=== PATIENT | male | born 1985 ===

== ENCOUNTER 2017-07-14 01:56 | Emergency (ER) | payer MEDICAID ==
--- NOTE | 2017-07-14 02:18 | ED PDOC ---
Arrival/HPI - General Chief Complaint: Substance Abuse Time Seen by Provider: 07/14/17 02:14 Historian: Patient - History of Present Illness Narrative History of Present Illness (Text): 07/14/17 02:17 Neri Dotson is a 31 year old male, whose past medical history includes substance abuse, who presents to the emergency department for substance abuse. Patient states he took "too much Sandra" and smoked marijuana yesterday. Patient denies any suicidal ideation, homicidal ideation, fever, chills, chest pain, shortness of breath, nausea, vomiting, diarrhea, urinary symptoms, back pain, neck pain, or any other complaints. Time/Duration: Prior to Arrival Symptom Onset: Gradual Symptom Course: Unchanged Context: Home Past Medical History - Provider Review Nursing Documentation Reviewed: Yes - Psychiatric Hx Substance Use: Yes (mollie, marijuana) Family/Social History - Physician Review Nursing Documentation Reviewed: Yes Family/Social History: Unknown Family HX Smoking Status: Heavy Smoker > 10 Cigarettes Daily Hx Alcohol Use: Yes Frequency of alcohol use: Socially Hx Substance Use: Yes (mollie, marijuana) Allergies/Home Meds Allergies/Adverse Reactions: Allergies No Known Allergies Allergy (Verified 02/23/17 11:50) Home Medications: Home Meds Medication Instructions Recorded Confirmed No Known Home Med 07/14/17 07/14/17 Review of Systems - Physician Review All systems were reviewed & negative as marked: Yes - Review of Systems Constitutional: Normal. absent: Fevers Eyes: Normal ENT: Normal Respiratory: Normal. absent: SOB, Cough Cardiovascular: Normal. absent: Chest Pain Gastrointestinal: Normal. absent: Abdominal Pain, Diarrhea, Nausea, Vomiting Genitourinary Male: Normal. absent: Dysuria, Frequency, Hematuria, Urinary Output Changes Musculoskeletal: Normal. absent: Back Pain, Neck Pain Skin: Normal. absent: Rash Neurological: Normal. absent: Headache, Dizziness Endocrine: Normal Hemo/Lymphatic: Normal Psychiatric: Other (substance abuse). absent: Suicidal Ideation Physical Exam Vital Signs Reviewed: Yes Vital Signs Temp Pulse Resp BP Pulse Ox 07/14/17 09:22 97.6 F 86 18 105/55 L 96 07/14/17 07:31 97.5 F L 71 18 113/58 L 96 07/14/17 04:06 87 20 122/60 95 07/14/17 02:02 99.2 F 109 H 24 124/46 L 97 Temperature: Afebrile Blood Pressure: Normal Pulse: Tachycardic Respiratory Rate: Normal Appearance: Positive for: Well-Appearing, Non-Toxic, Comfortable Pain Distress: None Mental Status: Positive for: Alert and Oriented X 3, other (Anxious) - Systems Exam Head: Present: Atraumatic, Normocephalic Pupils: Present: PERRL Extroacular Muscles: Present: EOMI Conjunctiva: Present: Normal Mouth: Present: Moist Mucous Membranes Neck: Present: Normal Range of Motion Respiratory/Chest: Present: Clear to Auscultation, Good Air Exchange. No: Respiratory Distress, Accessory Muscle Use Cardiovascular: Present: Regular Rate and Rhythm, Normal S1, S2. No: Murmurs Abdomen: Present: Normal Bowel Sounds. No: Tenderness, Distention, Peritoneal Signs Back: Present: Normal Inspection Upper Extremity: Present: Normal Inspection. No: Cyanosis, Edema Lower Extremity: Present: Normal Inspection. No: Edema Neurological: Present: GCS=15, CN II-XII Intact, Speech Normal Skin: Present: Warm, Dry, Normal Color. No: Rashes Psychiatric: Present: Alert, Oriented x 3, Anxious, Other (Bizarre behavior) Medical Decision Making ED Course and Treatment: 07/14/17 02:17 Impression: 31 year old male presents the Emergency department status post substance abuse. Plan: -- EKG -- Labs, alcohol level -- Urinalysis, urine drug screen -- Reassess and disposition Progress Notes: Reviewed EKG, NSR at [address]-segment elevations or depressions, no T-wave inversions, normal intervals. 07/14/17 06:27 pt reassesed now oriented x 3, mildly somulent, pending clincal sobriety. endorses he took sandra and smoke marijuana yesterday.' 07/15/17 07:50 endorsed to day shift, pending clinical sobriety reassessment final dispo - Lab Interpretations Lab Results: 07/14/17 04:00 07/14/17 04:00 Lab Results 07/14/17 07:25: Urine Opiates Screen Negative, Urine Methadone Screen Negative, Ur Barbiturates Screen Negative, Ur Phencyclidine Scrn Negative, Ur Amphetamines Screen Negative, U Benzodiazepines Scrn Negative, U Oth Cocaine Metabols Negative, U Cannabinoids Screen Positive H 07/14/17 07:25: Urine Color Yellow, Urine Appearance Clear, Urine pH 6.0, Ur Specific [place] >= 1.030, Urine Protein Negative, Urine Glucose (UA) Negative, Urine Ketones 15 H, Urine Blood Negative, Urine Nitrate Negative, Urine Bilirubin Negative, Urine Urobilinogen 0.2, Ur Leukocyte Esterase Negative 07/14/17 04:00: Alcohol, Quantitative < 10 07/14/17 04:00: Salicylates < 1 L, Acetaminophen < 10.0 L 07/14/17 04:00: Sodium 137, Potassium 3.1 L, Chloride 97 L, Carbon Dioxide 29, Anion Gap 14, BUN 27 H, Creatinine 1.2, Est GFR ( Amer) > 60, Est GFR ( Non-Af Amer) > 60, Random Glucose 90, Calcium 9.3, Total Bilirubin 2.9 H, AST 140 H, ALT 60 H, Alkaline Phosphatase 77, Total Protein 6.8, Albumin 4.0, Globulin 2.7, Albumin/Globulin Ratio 1.5 07/14/17 04:00: WBC 10.6, RBC 4.10, Hgb 13.4 L, Hct 36.6 L, MCV 89.3, MCH 32.7, MCHC 36.6, RDW 12.2, Plt Count 181, MPV 9.7, Gran % 76.4 H, Lymph % (Auto) 15.3 L, [place] % (Auto) 6.8 H, Eos % (Auto) 1.3 L, Baso % (Auto) 0.2, Gran # 8.13 H, Lymph # (Auto) 1.6, [place] # (Auto) 0.7 H, Eos # (Auto) 0.1, Baso # (Auto) 0.02 - EKG Interpretation Interpreted by ED Physician: Yes Type: 12 lead EKG - Medication Orders Current Medication Orders: Discontinued Medications Potassium Chloride (K-Dur 20 Meq Er Tab) 40 meq PO STAT STA Stop: 07/14/17 04:25 - Scribe Statement The provider has reviewed the documentation as recorded by the Eileen Lugo training under Heidi Madrigla All medical record entries made by the Girishibmelania were at my direction and personally dictated by me. I have reviewed the chart and agree that the record accurately reflects my personal performance of the history, physical exam, medical decision making, and the department course for this patient. I have also personally directed, reviewed, and agree with the discharge instructions and disposition. Disposition/Present on Arrival - Present on Arrival Any Indicators Present on Arrival: No History of DVT/PE: No History of Uncontrolled Diabetes: No Urinary Catheter: No History of Decub. Ulcer: No History Surgical Site Infection Following: None - Disposition Have Diagnosis and Disposition been Completed?: Yes Diagnosis: Drug abuse Disposition: HOME/ ROUTINE Disposition Time: 07:00 Condition: IMPROVED Discharge Instructions (ExitCare): Polysubstance Abuse (ED) Additional Instructions: Mr Dotson, thank you for letting us take care of you today. Your provider was Dr. Gustafson. You were treated for Drug use. The emergency medical care you received today was directed at your acute symptoms. If you were prescribed any medication, please fill it and take as directed. It may take several days for your symptoms to resolve. Return to the Emergency Department if your symptoms worsen, do not improve, or if you have any other problems. Please contact your doctor or call one of the physicians/clinics you have been referred to that are listed on the Patient Visit Information form that is included in your discharge packet. Bring any paperwork you were given at discharge with you along with any medications you are taking to your follow up visit. Our treatment cannot replace ongoing medical care by a primary care provider (PCP) outside of the emergency department. Thank you for allowing the [facility] team to be part of your care today. If you had an X-Ray or CT scan: A Radiologist will review the ED reading if any change in treatment is needed we will contact you. If you had a blood, urine, or wound culture: It will take several days for the results, if any change in treatment is needed we will contact you. If you had an STI test: It will take 48 hours for the results. Please call after 1 week if you have not heard back. Referrals: [facility] at [facility] [Outside] - Follow up with primary Forms: [employer] (Welsh), WORK NOTE
[2017-07-14 04:22] LABS: BASO # 0.02 K/mm3 (0.0-2.0); BASO % 0.2 % (0.0-3.0); EOS # 0.1 (0.0-0.7); EOS % 1.3 % (1.5-5.0); GRAN # 8.13 (1.4-6.5); GRAN % 76.4 % (50.0-68.0); HEMOGLOBIN 13.4 g/dL (14.0-18.0); LYMPH # 1.6 (1.2-3.4); LYMPH % 15.3 % (22.0-35.0); MEAN CELL VOLUME 89.3 fl (80.0-105.0); MEAN CORPUSCULAR HEMOGLOBIN 32.7 pg (25.0-35.0); MEAN CORPUSCULAR HGB CONC 36.6 g/dl (31.0-37.0); MEAN PLATELET VOLUME 9.7 fl (7.0-11.0); MONO # 0.7 (0.1-0.6); MONO % 6.8 % (1.0-6.0); RBC 4.1 10^6/uL (3.5-6.1); RED CELL DISTRIBUTION WIDTH 12.2 % (11.5-14.5); WHITE BLOOD COUNT 10.6 10^3/ul (4.5-11.0)
[2017-07-14 04:23] LABS: ACETAMINOPHEN < 10.0 ug/ml (10.0-20.0); SALICYLATE < 1 mg/dL (2.0-20.0)
[2017-07-14 04:24] LABS: ALB/GLOB RATIO 1.5 (1.1-1.8); ALT/SGPT 60 U/L (7-56); AST/SGOT 140 U/L (17-59); BLOOD UREA NITROGEN 27 mg/dL (7-21); CALCIUM 9.3 mg/dL (8.4-10.5); GFR AFRICAN-AMERICAN > 60; GFR NON-AFRICAN AMERICAN > 60
[2017-07-14] MEDS ORDERED: Potassium Chloride 20 mEq ER Tab PO STA (04:24)
[2017-07-14 07:31] VITALS: RESP 18; O2SAT 96
[2017-07-14 07:46] LABS: URINE BILIRUBIN NEGATIVE (NEGATIVE); URINE BLOOD NEGATIVE (NEGATIVE); URINE GLUCOSE (UA) NEGATIVE (NEGATIVE); URINE LEUKOCYTE ESTERASE NEGATIVE Leu/uL (NEGATIVE); URINE NITRATE NEGATIVE (NEGATIVE); URINE PROTEIN NEGATIVE mg/dL (<30 mg/dL); URINE UROBILINOGEN 0.2 E.U./dL (<1 E.U./dL)
[2017-07-14 07:49] LABS: URINE APPEARANCE CLEAR (CLEAR); URINE COLOR YELLOW (YELLOW)
[2017-07-14 08:00] LABS: BARBITURATES, UR NEGATIVE (NEGATIVE); BENZODIAZEPINES, UR NEGATIVE (NEGATIVE); OPIATES, UR NEGATIVE (NEGATIVE); PHENCYCLIDINE, UR NEGATIVE (NEGATIVE)
--- NOTE | 2017-07-14 09:00 | ED PDOC ---
Physical Exam Vital Signs Temp Pulse Resp BP Pulse Ox 07/14/17 07:31 97.5 F L 71 18 113/58 L 96 07/14/17 04:06 87 20 122/60 95 07/14/17 02:02 99.2 F 109 H 24 124/46 L 97 Finger Stick Blood Glucose: 106 Medical Decision Making ED Course and Treatment: 07/14/17 07:18 Patient signed out to me by Dr. Estrada. 07/14/2017 08:56 Patient currently stable, awake and alert oriented x 3 at this time. Patient admits to having used moly last night and is now requesting food. Patient has no slurred speech, no ataxia. Has been advise to go to drug rehab center and to follow up at clinic. - Critical Care Critical Care Minutes: 30 minutes - Lab Interpretations Lab Results: 07/14/17 04:00 07/14/17 04:00 Lab Results 07/14/17 07:25: Urine Opiates Screen Negative, Urine Methadone Screen Negative, Ur Barbiturates Screen Negative, Ur Phencyclidine Scrn Negative, Ur Amphetamines Screen Negative, U Benzodiazepines Scrn Negative, U Oth Cocaine Metabols Negative, U Cannabinoids Screen Positive H 07/14/17 07:25: Urine Color Yellow, Urine Appearance Clear, Urine pH 6.0, Ur Specific [place] >= 1.030, Urine Protein Negative, Urine Glucose (UA) Negative, Urine Ketones 15 H, Urine Blood Negative, Urine Nitrate Negative, Urine Bilirubin Negative, Urine Urobilinogen 0.2, Ur Leukocyte Esterase Negative 07/14/17 04:00: Alcohol, Quantitative < 10 07/14/17 04:00: Salicylates < 1 L, Acetaminophen < 10.0 L 07/14/17 04:00: Sodium 137, Potassium 3.1 L, Chloride 97 L, Carbon Dioxide 29, Anion Gap 14, BUN 27 H, Creatinine 1.2, Est GFR ( Amer) > 60, Est GFR ( Non-Af Amer) > 60, Random Glucose 90, Calcium 9.3, Total Bilirubin 2.9 H, AST 140 H, ALT 60 H, Alkaline Phosphatase 77, Total Protein 6.8, Albumin 4.0, Globulin 2.7, Albumin/Globulin Ratio 1.5 07/14/17 04:00: WBC 10.6, RBC 4.10, Hgb 13.4 L, Hct 36.6 L, MCV 89.3, MCH 32.7, MCHC 36.6, RDW 12.2, Plt Count 181, MPV 9.7, Gran % 76.4 H, Lymph % (Auto) 15.3 L, [place] % (Auto) 6.8 H, Eos % (Auto) 1.3 L, Baso % (Auto) 0.2, Gran # 8.13 H, Lymph # (Auto) 1.6, [place] # (Auto) 0.7 H, Eos # (Auto) 0.1, Baso # (Auto) 0.02 - Medication Orders Current Medication Orders: Discontinued Medications Potassium Chloride (K-Dur 20 Meq Er Tab) 40 meq PO STAT STA Stop: 07/14/17 04:25 - Scribe Statement The provider has reviewed the documentation as recorded by the Eileen Thayer Provider Scribe Attestation: All medical record entries made by the Scribe were at my direction and personally dictated by me. I have reviewed the chart and agree that the record accurately reflects my personal performance of the history, physical exam, medical decision making, and the department course for this patient. I have also personally directed, reviewed, and agree with the discharge instructions and disposition. Disposition/Present on Arrival - Present on Arrival Any Indicators Present on Arrival: No History of DVT/PE: No History of Uncontrolled Diabetes: No Urinary Catheter: No History of Decub. Ulcer: No History Surgical Site Infection Following: None - Disposition Have Diagnosis and Disposition been Completed?: Yes Diagnosis: Drug abuse Disposition: HOME/ ROUTINE Disposition Time: 09:06 Patient Plan: Discharge Patient Problems: Current Active Problems Problem Status Onset Drug abuse Acute Condition: IMPROVED Discharge Instructions (ExitCare): Polysubstance Abuse (ED) Additional Instructions: Mr Dotson, thank you for letting us take care of you today. Your provider was Dr. Gustafson. You were treated for Drug use. The emergency medical care you received today was directed at your acute symptoms. If you were prescribed any medication, please fill it and take as directed. It may take several days for your symptoms to resolve. Return to the Emergency Department if your symptoms worsen, do not improve, or if you have any other problems. Please contact your doctor or call one of the physicians/clinics you have been referred to that are listed on the Patient Visit Information form that is included in your discharge packet. Bring any paperwork you were given at discharge with you along with any medications you are taking to your follow up visit. Our treatment cannot replace ongoing medical care by a primary care provider (PCP) outside of the emergency department. Thank you for allowing the [email or web address] team to be part of your care today. If you had an X-Ray or CT scan: A Radiologist will review the ED reading if any change in treatment is needed we will contact you. If you had a blood, urine, or wound culture: It will take several days for the results, if any change in treatment is needed we will contact you. If you had an STI test: It will take 48 hours for the results. Please call after 1 week if you have not heard back. Referrals: [facility] at [facility] [Outside] - Follow up with primary Forms: [facility] (Vincentian), WORK NOTE
[2017-07-14 09:25] VITALS: BP 105/55; PULSE 86; TEMP 97.6
--- NOTE | 2017-07-14 16:07 | CARD ---
APPROVED REPORT EKG Measurement Heart [id number] <Conclusion> Normal sinus rhythm with sinus arrhythmia Normal ECG
== END 2017-07-14 10:04 | disposition home or self-care (01) ==
LOC: ED 01:56 → MERGE 01:56 → ED 10:04
DX: F19.10 Other psychoactive substance abuse, uncomplicated (principal); F17.210 Nicotine dependence, cigarettes, uncomplicated

== ENCOUNTER 2017-09-26 19:39 | Emergency (ER) | payer MEDICAID ==
[2017-09-26 19:40] VITALS: BMI 23.1
[2017-09-26 19:50] VITALS: RESP 18; TEMP 97.9; O2SAT 99
[2017-09-26] MEDS ORDERED: Oxycodone/Acetaminophen 5/325 mg Tab PO STA (19:50)
--- NOTE | 2017-09-26 19:56 | ED PDOC ---
Arrival/HPI - General Chief Complaint: Dental Pain Time Seen by Provider: 09/26/17 19:44 Historian: Patient - History of Present Illness Narrative History of Present Illness (Text): 09/26/17 20:00 32 year old male presents to the Emergency department via ambulance complaining of right upper molar dental pain for 1 week. Patient has not seen a dentist and has been taking Motrin with minor to no relief. Today, patient decided to call emergency services because he felt that the pain was "too much." Patient denies any fever, chills, chest pain, shortness of breath, nausea, vomiting, diarrhea, urinary symptoms, back pain, neck pain, headache, dizziness, trauma/injury, or any other complaints. Time/Duration: 1 week Symptom Onset: Gradual Symptom Course: Worsening Context: Home Past Medical History - Provider Review Nursing Documentation Reviewed: Yes - Infectious Disease Hx of Infectious Diseases: None - Cardiac Hx Cardiac Disorders: No - Psychiatric Hx Substance Use: Yes - Surgical History Hx Orthopedic Surgery: Yes Other/Comment: L hip surgery secondary to dislocation - Anesthesia Hx Anesthesia: Yes Hx Anesthesia Reactions: No Hx Malignant Hyperthermia: No Family/Social History - Physician Review Nursing Documentation Reviewed: Yes Family/Social History: Unknown Family HX Smoking Status: Heavy Smoker > 10 Cigarettes Daily Hx Alcohol Use: Yes Hx Substance Use: Yes Substance used: MARIJUANNA Allergies/Home Meds Allergies/Adverse Reactions: Allergies No Known Allergies Allergy (Verified 02/23/17 11:50) Review of Systems - Physician Review All systems were reviewed & negative as marked: Yes - Review of Systems Constitutional: absent: Fevers, Night Sweats ENT: Other (dental pain) Respiratory: absent: SOB Cardiovascular: absent: Chest Pain Gastrointestinal: absent: Diarrhea, Nausea, Vomiting Genitourinary Male: absent: Dysuria Musculoskeletal: absent: Back Pain, Neck Pain Neurological: absent: Headache, Dizziness Physical Exam Vital Signs Reviewed: Yes Vital Signs Temp Pulse Resp BP Pulse Ox 09/26/17 20:13 70 18 140/82 99 09/26/17 19:40 97.9 F 68 18 142/90 99 Temperature: Afebrile Blood Pressure: Normal Pulse: Regular Respiratory Rate: Normal Appearance: Positive for: Well-Appearing, Non-Toxic, Comfortable Pain Distress: None Mental Status: Positive for: Alert and Oriented X 3 - Systems Exam Head: Present: Atraumatic, Normocephalic Pupils: Present: PERRL Extroacular Muscles: Present: EOMI Conjunctiva: Present: Normal Mouth: Present: Moist Mucous Membranes, Other (No abscess, no swollen glands). No: Normal Teeth (Dental decay and dental caries) Neck: Present: Normal Range of Motion Respiratory/Chest: Present: Clear to Auscultation, Good Air Exchange. No: Respiratory Distress, Accessory Muscle Use Cardiovascular: Present: Regular Rate and Rhythm, Normal S1, S2. No: Murmurs Abdomen: No: Tenderness, Distention, Peritoneal Signs Back: Present: Normal Inspection Upper Extremity: Present: Normal Inspection. No: Cyanosis, Edema Lower Extremity: Present: Normal Inspection. No: Edema Neurological: Present: GCS=15, CN II-XII Intact, Speech Normal Skin: Present: Warm, Dry, Normal Color. No: Rashes Psychiatric: Present: Alert, Oriented x 3, Normal Insight, Normal Concentration Medical Decision Making ED Course and Treatment: 09/26/17 20:14 Impression: 32 year old male presents to the Emergency department complaining of right upper molar dental pain. Plan: -- Amoxicillin, Zofran, Percocet -- Disposition Prior Visits: Notes and results from previous visits were reviewed. Patient was last seen in the emergency department on on 07/14/17 for drug abuse. Patient was discharged home. Progress Notes: Will provide the patient with amoxicillin and discharge. Will instruct the patient to follow up with dentist. - Medication Orders Current Medication Orders: Discontinued Medications Amoxicillin (Amoxil 500 Mg Cap) 500 mg PO STAT STA PRN Reason: Protocol Stop: 09/26/17 19:51 Last Admin: 09/26/17 19:58 Dose: 500 mg Ondansetron HCl (Zofran Odt) 8 mg PO STAT STA Stop: 09/26/17 19:52 Last Admin: 09/26/17 19:58 Dose: 8 mg Oxycodone/Acetaminophen (Percocet 5/325 Mg Tab) 2 tab PO STAT STA Stop: 09/26/17 19:51 Last Admin: 09/26/17 19:58 Dose: 2 tab MAR Pain Assessment Document 09/26/17 19:58 IT (Rec: 09/26/17 19:59 IT [id number]) Pain Reassessment Is this a pain reassessment? No Sleep Is patient sleeping during reassessment? No Presence of Pain Presence of Pain Yes Pain Scale Used Pain Scale Used Numeric Location Left, Right or Bilateral Right Description Description Constant Intensity of Pain at present 9 - Scribe Statement The provider has reviewed the documentation as recorded by the Girishibmelania Jara All medical record entries made by the Girishibe were at my direction and personally dictated by me. I have reviewed the chart and agree that the record accurately reflects my personal performance of the history, physical exam, medical decision making, and the department course for this patient. I have also personally directed, reviewed, and agree with the discharge instructions and disposition. Disposition/Present on Arrival - Present on Arrival Any Indicators Present on Arrival: No History of DVT/PE: No History of Uncontrolled Diabetes: No Urinary Catheter: No History of Decub. Ulcer: No History Surgical Site Infection Following: None - Disposition Have Diagnosis and Disposition been Completed?: Yes Diagnosis: Pain due to dental caries Disposition: HOME/ ROUTINE Disposition Time: 19:55 Patient Plan: Discharge Condition: GOOD Discharge Instructions (ExitCare): Tooth Decay, Adult (DC), Dental Pain (DC) Additional Instructions: Neri- When you have a dental problem you really ultimately have to see a dentist. Please see one in the next 48 hours. Return to us if worse or new symptoms develop. The amoxicillin is three times a day for ten days. Alo- Dr. Hernando Huber Prescriptions: Amoxicillin 500 mg PO TID #30 tablet Referrals: PCP,NO [Non-Staff] - Follow up with primary Forms: [employer] (Greek), SCHOOL NOTE
[2017-09-26 20:16] VITALS: BP 140/82; PULSE 70
== END 2017-09-26 20:16 | disposition home or self-care (01) ==
LOC: ED 19:39
DX: K02.9 Dental caries, unspecified (principal)

== ENCOUNTER 2017-10-13 18:15 | Emergency (ER) | payer MEDICAID ==
[2017-10-13 18:23] VITALS: BMI 20.5
[2017-10-13 18:27] VITALS: O2SAT 98
--- NOTE | 2017-10-13 19:34 | ED PDOC ---
Arrival/HPI - General Chief Complaint: Upper Extremity Problem/Injury Time Seen by Provider: 10/13/17 18:55 Historian: Patient - History of Present Illness Narrative History of Present Illness (Text): 10/13/17 19:31 32-year-old male presents today with right shoulder pain status post injury. Patient states he tripped and as he started to fall he caught himself with the right arm. Pt states he did NOT fall to the ground. pt states he did NOT hit his head. Patient states he felt as if the shoulder popped out of the socket. Patient states he has had a dislocated shoulder twice in the past with similar symptoms. Patient states the shoulder went back into place but he is still having pain over the entire shoulder joint. Patient denies numbness weakness or tingling in the extremities. No medications taken for pain. Incident occurred prior to arrival. Time/Duration: Prior to Arrival Past Medical History - Provider Review Nursing Documentation Reviewed: Yes - Travel History Have you recently traveled outside [place] w/in the past 3 mons?: No - Infectious Disease Hx of Infectious Diseases: None - Cardiac Hx Cardiac Disorders: No - Psychiatric Hx Substance Use: Yes - Surgical History Hx Orthopedic Surgery: Yes Other/Comment: L hip surgery secondary to dislocation - Anesthesia Hx Anesthesia: Yes Hx Anesthesia Reactions: No Hx Malignant Hyperthermia: No Family/Social History - Physician Review Nursing Documentation Reviewed: Yes Family/Social History: Unknown Family HX Smoking Status: Heavy Smoker > 10 Cigarettes Daily Hx Alcohol Use: No Hx Substance Use: Yes Substance used: marijuana Allergies/Home Meds Allergies/Adverse Reactions: Allergies No Known Allergies Allergy (Verified 02/23/17 11:50) Review of Systems - Review of Systems Constitutional: absent: Fatigue, Fevers Respiratory: absent: SOB, Cough Cardiovascular: absent: Chest Pain, Palpitations Gastrointestinal: absent: Abdominal Pain, Nausea, Vomiting Musculoskeletal: Arthralgias (right shoulder pain). absent: Back Pain, Neck Pain Skin: absent: Rash, Pruritis Neurological: absent: Headache, Dizziness Psychiatric: absent: Anxiety, Depression Physical Exam Vital Signs Reviewed: Yes Vital Signs Temp Pulse Resp BP Pulse Ox 10/13/17 21:28 98.0 F 77 20 122/54 L 98 10/13/17 18:26 97.4 F L 73 18 138/55 L 98 Temperature: Afebrile Blood Pressure: Normal Pulse: Regular Respiratory Rate: Normal Appearance: Positive for: Well-Appearing, Non-Toxic, Comfortable Pain Distress: None Mental Status: Positive for: Alert and Oriented X 3 - Systems Exam Head: Present: Atraumatic Neck: Present: Normal Range of Motion Respiratory/Chest: Present: Clear to Auscultation Cardiovascular: Present: Regular Rate and Rhythm Back: Present: Normal Inspection, Paraspinal Tenderness. No: Midline Tenderness Upper Extremity: Present: Normal ROM, NORMAL PULSES, Tenderness (right shoulder ; + ttp over anterior aspect of shoulder; full rom of shoulder with pain; sensation and distal pulses intact; cap refill <2. ), Neurovascularly Intact, Capillary Refill < 2s. No: Swelling, Erythema, Deformity Neurological: Present: GCS=15, Speech Normal Skin: Present: Warm, Dry, Normal Color. No: Rashes Psychiatric: Present: Alert, Oriented x 3 Medical Decision Making ED Course and Treatment: 10/13/17 19:35 Patient nontoxic well-appearing in no distress with stable vital signs code ortho called; toradol given IM X-rays of the right shoulder; no fracture pt reassessment; pt sleeping in er; no distress. I discussed all results with patient advised to followup with the orthopedist for the next 2 days. Return if symptoms worsen persist or new symptoms develop i advised the patient that although the xrays show no fracture; there is still a possibility for ligamentous or tendon injury the patient must see the orthopedist for further evaluation. Patient verbalizes understanding of discharge instructions and need for immediate followup. all aspects of this case were discussed the attending of record. Impression: shoulder pain Motrin every 6 hours as needed for pain Rest, ice, compression, elevation Followup with the orthopedist within the next 2 days Followup with primary care physician within the next 2 days Return if any other concerning symptoms develop Reassessment Condition: Re-examined, Improved - RAD Interpretation Radiology Orders: 10/13/17 19:15 SHOULDER RIGHT [RAD] Stat - Medication Orders Current Medication Orders: Discontinued Medications Ketorolac Tromethamine (Toradol) 60 mg IM STAT STA Stop: 10/13/17 18:56 Last Admin: 10/13/17 19:27 Dose: 60 mg CHENCHO Pain Assessment Document 10/13/17 19:27 LA (Rec: 10/13/17 19:28 LA [id number]) Pain Reassessment Is this a pain reassessment? No Sleep Is patient sleeping during reassessment? No Presence of Pain Presence of Pain Yes Pain Scale Used Pain Scale Used Numeric Location Left, Right or Bilateral Right Pain Location Body Site Shoulder Foot Description Intensity of Pain at present 7 Pain Behavior Guarding Irritability IM Administration Charges Document 10/13/17 19:27 SOFIA (Rec: 10/13/17 19:28 SOFIA [id number]) Injection Site MAR Injection Site Right Gluteus Medius Charges for Administration # of IM Administrations 1 Disposition/Present on Arrival - Present on Arrival Any Indicators Present on Arrival: No History of DVT/PE: No History of Uncontrolled Diabetes: No Urinary Catheter: No History of Decub. Ulcer: No History Surgical Site Infection Following: None - Disposition Have Diagnosis and Disposition been Completed?: Yes Diagnosis: Shoulder pain Disposition: HOME/ ROUTINE Disposition Time: 22:11 Patient Plan: Discharge Condition: GOOD Discharge Instructions (ExitCare): Shoulder Pain (DC) Additional Instructions: Motrin every 6 hours as needed for pain Rest, ice, compression, elevation Followup with the orthopedist within the next 2 days Followup with primary care physician within the next 2 days Return if any other concerning symptoms develop Prescriptions: Ibuprofen [Motrin] 600 mg PO Q6H PRN #20 tab PRN Reason: pain/fever reduction Referrals: Abner Gillespie III, MD [Medical Doctor] - Follow up with primary Gisela Muro MD [Staff Provider] - Follow up with primary [facility] [place] - Follow up with primary [facility] [place] [Outside] - Follow up with primary Forms: [email or web address] (Upper Sorbian), WORK NOTE
[2017-10-13 21:29] VITALS: BP 122/54; PULSE 77; RESP 20; TEMP 98
--- NOTE | 2017-10-14 09:11 | RAD ---
PROCEDURE: Radiographs of the Right Shoulder HISTORY: shoulder pain COMPARISON: No prior. FINDINGS: BONES: No acute fracture dislocation is appreciate with the acromioclavicular and glenohumeral joints appear unremarkable. There is a borderline Hill-Sachs deformity at the superolateral humeral head however. Clinically correlate further as a history of prior dislocation. JOINTS: As above. SOFT TISSUES: Normal. OTHER FINDINGS: None. IMPRESSION: No acute fracture or dislocation grossly evident. There is a questionable Hill-Sachs deformity at the superolateral humeral head raising question of prior dislocation. Clinically correlate.
== END 2017-10-13 21:21 | disposition home or self-care (01) ==
LOC: ED 18:15
DX: M25.511 Pain in right shoulder (principal)
CPT/HCPCS: 73030; 96372; 99283; J1885

== ENCOUNTER 2017-11-13 07:47 | Emergency (ER) | payer MEDICAID ==
[2017-11-13 07:47] VITALS: BMI 20.5
[2017-11-13 08:05] VITALS: RESP 18
--- NOTE | 2017-11-13 08:57 | ED PDOC ---
Arrival/HPI - General Chief Complaint: Substance Abuse Time Seen by Provider: 11/13/17 08:41 Historian: Patient - History of Present Illness Narrative History of Present Illness (Text): 11/13/17 08:54 32 year old male, with past history of substance abuse, presents to the Emergency department via EMS complaining of severe anxiety s/p using drugs yesterday. Patient admits to using sandra yesterday as well as smoking weed recently. Patient states he uses sandra on special occasions. Patient informs having an argument with his mother leading to this event. Patient denies any somatic complaints and denies suicidal or homicidal ideation. Patient denies any hallucinatory symptoms including visual, auditory and tactile. Patient denies any fever/chills/sweats, chest pain/shortness of breath/palpitations, abdominal pain/nausea/vomiting, numbness/tingling, urinary/bowel changes/ complaints, fall/trauma/sick contact/travel or any other complaints. Patient presents to the Emergency department for medical evaluation. pt denied LOC PCP: unknown/none? Time/Duration: 24 hours Symptom Onset: Gradual Symptom Course: Unchanged Activities at Onset: Other (use of sandra and weed) Context: Home Past Medical History - Provider Review Nursing Documentation Reviewed: Yes - Travel History Have you recently traveled outside [place] w/in the past 3 mons?: No - Past History Past History: No Previous - Infectious Disease Hx of Infectious Diseases: None - Cardiac Hx Cardiac Disorders: No - Psychiatric Hx Substance Use: Yes - Surgical History Hx Orthopedic Surgery: Yes Other/Comment: L hip surgery secondary to dislocation - Anesthesia Hx Anesthesia: Yes Hx Anesthesia Reactions: No Hx Malignant Hyperthermia: No Family/Social History - Physician Review Nursing Documentation Reviewed: Yes Family/Social History: No Known Family HX Smoking Status: Heavy Smoker > 10 Cigarettes Daily Hx Alcohol Use: No Hx Substance Use: Yes Substance used: marijuana Hx Substance Use Treatment: No Allergies/Home Meds Allergies/Adverse Reactions: Allergies No Known Allergies Allergy (Verified 11/13/17 08:05) Home Medications: Home Meds Medication Instructions Recorded Confirmed No Known Home Med 11/13/17 11/13/17 Review of Systems - Physician Review All systems were reviewed & negative as marked: Yes - Review of Systems Constitutional: Normal. absent: Fevers Eyes: Normal ENT: Normal Respiratory: Normal. absent: SOB Cardiovascular: Normal. absent: Chest Pain, Palpitations Gastrointestinal: Normal. absent: Abdominal Pain, Nausea, Vomiting Genitourinary Male: Normal. absent: Urinary Output Changes Musculoskeletal: Normal Skin: Normal Neurological: Normal Endocrine: Normal Hemo/Lymphatic: Normal Psychiatric: Anxiety. absent: Depression, Suicidal Ideation Physical Exam - Physical Exam Narrative Physical Exam (Text): 11/13/17 09:01 General: alert/awake, GCS = 15, oriented x 3, resting in bed, uncomfortable, cooperative, interactive; anxious/slightly jittery, at times tearful when talking about his mother Head: NC/AT EYE: PERRLA, EOMI, sclera anicteric, no nystagmus, no photophobia; visual field intact b/l Facial: WNL Oral: uvula/tongue are midline, no exudate/lesions, no drooling/stridor, no dysphonia; fair dentitions; mild dry oral mucosa NECK: intact ROM, no midline tenderness, no nuchal rigidity, no meningeal signs ; no step off Chest: CTA b/l, no w/r/r; no tachypenia, no accessory muscle use noted Chest Wall: no crepitus, no lesions, no gross deformities, no focal tenderness Cardiac: +S1, +S2, no m/r/r, no tachycardia Abdominal: +BS, soft/nd/nt, well nourished patient; no masses/rebound/guarding/ rigidity; no townsend's sign, no mcburney's point tenderness Extremities: intact ROM, strength 5/5 grossly intact in all limbs, neurovasc intact b/l; + ambulatory; reflex +2/2; no pitting edema b/l, no swelling noted b /l BACK: no step off, no midline tenderness, NO crepitus, no gross deformities noted; Intact ROM SKIN: cap refill < 1 sec, no ulcerations, no petechiae, no rashes; no gross pallor noted NEURO: CNII-XII WNL, no facial asymmetries, no slurr speech, oriented x 3 NIH stroke scale ~ 0 Psych: normal insight, jittery/anxious affect; follows command with ease Vital Signs Reviewed: Yes Vital Signs Temp Pulse Resp BP Pulse Ox 11/13/17 08:00 98.8 F 103 H 18 133/61 99 11/13/17 07:59 98.4 F 103 H 18 133/61 99 Temperature: Afebrile Blood Pressure: Normal Pulse: Tachycardic Respiratory Rate: Normal Appearance: Positive for: Well-Appearing, Non-Toxic, Uncomfortable Pain Distress: None Mental Status: Positive for: Alert and Oriented X 3 - Systems Exam Head: Present: Atraumatic, Normocephalic Medical Decision Making ED Course and Treatment: 11/13/17 09:02 Impression: 32 year old male presents to the Emergency department for anxiety s/ p substance use. I have considered all differential diagnoses regarding patients chief medical complaints/clinical findings which include but are not limited to: + drug use; domestic disagreement Plan: -- Drug Screen -- Ativan -- Reassess and disposition Progress Notes: 1200 pt + tolerated po well pt is now resting in bed pt is not in any distress vital signs WNL 11/13/17 15:29 pt remained comfortable pt is easily arousable currently pt states he feels tired oriented x 3 pt denied SI/HI, pt denied hallucinations pt is made aware of his medical results pt is encouraged not to smoke/do drugs pt is encouraged not to drink alcohol pt is encouraged continue hydration pt will f/u as directed pt will be discharged home Re-evaluation Time: 15:29 Reassessment Condition: Improved - Medication Orders Current Medication Orders: Discontinued Medications Lorazepam (Ativan) 2 mg IM ONCE ONE PRN Reason: Protocol Stop: 11/13/17 08:43 Last Admin: 11/13/17 08:47 Dose: 2 mg IM Administration Charges Document 11/13/17 08:47 EWO (Rec: 11/13/17 08:48 E[id number] Injection Site MAR Injection Site Left Deltoid Charges for Administration # of IM Administrations 1 - Scribe Statement The provider has reviewed the documentation as recorded by the Scribe Zahra Porter. All medical record entries made by the Scribe were at my direction and personally dictated by me. I have reviewed the chart and agree that the record accurately reflects my personal performance of the history, physical exam, medical decision making, and the department course for this patient. I have also personally directed, reviewed, and agree with the discharge instructions and disposition. Disposition/Present on Arrival - Present on Arrival Any Indicators Present on Arrival: No History of DVT/PE: No History of Uncontrolled Diabetes: No Urinary Catheter: No History of Decub. Ulcer: No History Surgical Site Infection Following: None - Disposition Have Diagnosis and Disposition been Completed?: Yes Diagnosis: Drug abuse, General medical exam Disposition: HOME/ ROUTINE Disposition Time: 15:32 Patient Plan: Discharge Patient Problems: Current Active Problems Problem Status Onset Drug abuse Acute General medical exam Acute Condition: STABLE Discharge Instructions (ExitCare): Drug Abuse and Drug Addiction (DC), Yearly Physical for Adults Print Language: NORTHER[place] IRISH Additional Instructions: Make sure to see your doctor in 1-2 days DRINK PLENTY OF FLUIDS DONT SMOKE DONT DO DRUGS DONT DRINK ALCOHOL take your medications as prescribed RETURN TO ED IF worse pain, cant breath, persistent vomiting, high fever >101- 102 for hours, altered behavior, slurr speech, facial changes, focal weakness ( arm/leg or both), unable to urinate, suicidal/homicidal ideations, hallucinations, heavy/persistent bleeding, passing out, chest pain, or other medical emergencies Referrals: [facility] [place] [Outside] - Follow up with primary [facility] [Outside] - Follow up with primary [facility] at [facility] [place] [Outside] - [facility] with [facility] [Outside] - Follow up with primary Forms: [employer] [facility] (Vietnamese)
[2017-11-13 16:37] VITALS: O2SAT 98
[2017-11-13 16:38] VITALS: TEMP 98.6
[2017-11-13 16:39] VITALS: BP 120/79; PULSE 89
== END 2017-11-13 16:38 | disposition home or self-care (01) ==
LOC: ED 07:47
DX: Z00.00 Encounter for general adult medical examination without abnormal findings (principal); F19.10 Other psychoactive substance abuse, uncomplicated; F17.210 Nicotine dependence, cigarettes, uncomplicated
CPT/HCPCS: 96372; 99284; J2060